=== PATIENT | female | born 1985 | race Two or more races ===

== ENCOUNTER 2019-01-22 08:15 | Inpatient (IN) ==
[2019-01-22] MEDS ORDERED: ONDANSETRON 4 MG/2 ML VIAL IV PRN ×2 (08:32→18:04)
[2019-01-22] MEDS ORDERED: MEPERIDINE 50 MG/1 ML VIAL IV PRN (08:32)
[2019-01-22] MEDS ORDERED: BUTORPHANOL 2 MG/ML VIAL IV PRN (08:32)
[2019-01-22 08:55] LABS: Basophils % 0.2 % (0.0-0.8); Eosinophils # 0.2 10*3/uL (0.0-0.87); Eosinophils % 2.6 % (0.00-10.9); Hematocrit 33.8 VOL% (35.7-47.0); Hemoglobin 10.7 GM/DL (12.0-16.0); Immature Granulocytes % 0.7 %; Immature Granulocytes Absolute 0.06 #; Lymphocytes # 1.5 10*3/uL (1.4-4.0); Mean Corpuscular HGB Conc 31.7 GM/DL (32-36); Mean Corpuscular Volume 85.1 FL (87-102); Mean Platelet Volume 12.3 FL (9.6-12.0); Monocytes % 5.8 % (1.7-12.7); Neutrophils % 71.7 % (38.7-73.9); Platelet Count 229 T/CUMM (130-400); Red Blood Count 3.97 MC/CUMM (3.8-5.5); Red Cell Distribution Width 17.4 % (9.3-17.3); White Blood Count 8.1 T/CUMM (4-12)
[2019-01-22] MEDS ORDERED: LACTATED RINGERS 1,000 ML IV SCH (09:00)
[2019-01-22] MEDS ORDERED: OXYTOCIN/LR 20 UNIT/1,000 ML BAG IV SCH (09:15)
[2019-01-22] MEDS ORDERED: NALOXONE 0.4 MG/ML VIAL IV PRN (09:29)
[2019-01-22] MEDS ORDERED: PROMETHAZINE 25 MG/1 ML VIAL IM ONE (09:29)
[2019-01-22] MEDS ORDERED: diphenhydrAMINE 50 MG/1 ML VIAL IV PRN ×2 (09:29)
[2019-01-22] MEDS ORDERED: LACTATED RINGERS 1,000 ML IV ONE (09:29)
[2019-01-22] MEDS ORDERED: hydrOXYzine HCL 25 MG/1 ML VIAL IM PRN (09:29)
[2019-01-22] MEDS ORDERED: FAMOTIDINE 20 MG/2 ML VIAL IV ONE (09:29)
[2019-01-22] MEDS ORDERED: ePHEDrine 50 MG/ML AMP IV PRN (09:29)
[2019-01-22] MEDS ORDERED: CITRIC ACID/SODIUM CITRATE 30 ML UDCUP PO ONE (09:29)
[2019-01-22] MEDS ORDERED: ONDANSETRON 4 MG/2 ML VIAL IV ONE (09:29)
[2019-01-22] MEDS ORDERED: fentaNYL 2 MCG/ROPIV 0.2% EPID 100 ML EPIDURAL SCH (09:30)
[2019-01-22 13:23] LABS: Apearance,Urine CLEAR (Clear); Bilirubin,Urine Negative (Negative); Blood, Urine Negative (Negative); Glucose,Urine (UA) Negative (Negative); Ketones,Urine 20 mg/dL (Negative); Mucus,Urine Occasional /LPF (Occasional); Nitrite,Urine Negative (Negative); Protein,Urine Negative; RBC,Urine <1 /HPF (0-4); Squamous Epithelial Cell,Urine Occasional /HPF (0-10); Urine Color Straw (Yellow); Urine Specific Gravity 1.008 (1.001-1.035); Urine Urobilinogen < 2.0 EU/DL (0.2-1.0); WBC,Urine <1 /HPF (0-6)
[2019-01-22] MEDS ORDERED: CARBOPROST TROMETHAMINE 250 MCG/ML AMP IM ONE (16:54)
[2019-01-22] MEDS ORDERED: miSOPROStol 200 MCG TABLET ONE (16:54)
[2019-01-22] MEDS ORDERED: METHYLERGONOVINE 0.2 MG/1 ML AMP ONE (16:54)
[2019-01-22] MEDS ORDERED: OXYTOCIN/LR 20 UNIT/1,000 ML BAG IV ONE ×2 (16:54→18:04)
[2019-01-22] MEDS ORDERED: TRANEXAMIC ACID 1,000 MG/10 ML VIAL ONE (16:54)
[2019-01-22] MEDS ORDERED: LIDOCAINE 1% 50 ML VIAL ONE (16:57)
[2019-01-22] MEDS ORDERED: ACETAMINOPHEN 325 MG TABLET PO PRN (18:04)
[2019-01-22] MEDS ORDERED: DIPH/TET/ACEL PERT BOOSTER VACCINE 0.5 ML VIAL IM ONE (18:04)
[2019-01-22] MEDS ORDERED: BISACODYL 10 MG SUPP RECTAL PRN (18:04)
[2019-01-22] MEDS ORDERED: WITCH HAZEL PADS 100/JAR TOP PRN (18:04)
[2019-01-22] MEDS ORDERED: HYDROCORTISONE 2.5% RECTAL CREAM 30 GM TUBE TOP PRN (18:04)
[2019-01-22] MEDS ORDERED: BENZOCAINE 20%/MENTHOL 0.5% SPRAY 56 GM CAN TOP PRN (18:04)
[2019-01-22] MEDS ORDERED: RHO(D) IMMUNE GLOBULIN 300 MCG SYRINGE IM ONE (18:04)
[2019-01-22] MEDS ORDERED: MEASLES/MUMPS/RUBELLA VACCINE 0.5 ML VIAL SUBCUT ONE (18:04)
[2019-01-22] MEDS ORDERED: oxyCODONE/ACETAMINOPHEN 5-325 MG TABLET PO PRN (18:04)
[2019-01-22] MEDS ORDERED: LANOLIN 50% CREAM 0.3 OZ TUBE TOP PRN (18:04)
[2019-01-22] MEDS: IBUPROFEN 800 MG TABLET PO PRN (19:41)
[2019-01-22] MEDS: DOCUSATE SODIUM 100 MG CAPSULE PO SCH (20:43)
[2019-01-22] MEDS: oxyCODONE/ACETAMINOPHEN 5-325 MG TABLET PO PRN (20:56)
[2019-01-23] MEDS: oxyCODONE/ACETAMINOPHEN 5-325 MG TABLET PO PRN ×3 (03:07→20:47)
[2019-01-23] MEDS: IBUPROFEN 800 MG TABLET PO PRN ×3 (03:07→20:47)
[2019-01-23 05:32] LABS: Basophils % 0.4 % (0.0-0.8); Eosinophils # 0.3 10*3/uL (0.0-0.87); Eosinophils % 2.8 % (0.00-10.9); Hematocrit 29.7 VOL% (35.7-47.0); Hemoglobin 9.2 GM/DL (12.0-16.0); Immature Granulocytes % 0.6 %; Immature Granulocytes Absolute 0.06 #; Lymphocytes # 1.4 10*3/uL (1.4-4.0); Lymphocytes % 14.5 % (21.3-54.2); Mean Corpuscular Volume 86.8 FL (87-102); Mean Platelet Volume 12.4 FL (9.6-12.0); Monocytes % 5.8 % (1.7-12.7); Neutrophils % 75.9 % (38.7-73.9); Platelet Count 187 T/CUMM (130-400); Red Blood Count 3.42 MC/CUMM (3.8-5.5); Red Cell Distribution Width 17.4 % (9.3-17.3); White Blood Count 9.7 T/CUMM (4-12)
[2019-01-23] MEDS: DOCUSATE SODIUM 100 MG CAPSULE PO SCH ×2 (08:34→20:47)
[2019-01-23] MEDS: FERROUS SULFATE 325 MG TABLET PO SCH (08:34)
[2019-01-23] MEDS ORDERED: MULTIVITAMIN (PRENATAL) TABLET PO SCH (09:00)
[2019-01-24] MEDS: IBUPROFEN 800 MG TABLET PO PRN (05:15)
[2019-01-24] MEDS: oxyCODONE/ACETAMINOPHEN 5-325 MG TABLET PO PRN (05:17)
[2019-01-24] MEDS ORDERED: ONDANSETRON 4 MG TABLET PO PRN (05:25)
[2019-01-24] MEDS ORDERED: INFLUENZA VIRUS VACCINE 0.5 ML SYRINGE IM ONE (07:00)
[2019-01-24 07:47] VITALS: BP 95/55
[2019-01-24] MEDS: FERROUS SULFATE 325 MG TABLET PO SCH (08:52)
[2019-01-24] MEDS: DOCUSATE SODIUM 100 MG CAPSULE PO SCH (08:52)
== END 2019-01-24 11:25 | disposition home or self-care (01) | DRG 768 ==
LOC: N.LDOUT 08:15 → N.LD 08:17 → N.OB 21:20
PROVIDERS: ADMIT Obstetrics & Gynecology; ATTEND Obstetrics & Gynecology